=== PATIENT | female | born 1980 ===

== ENCOUNTER 2018-07-20 19:25 | Emergency (ER) | payer OTHER ==
[~2018-07-20] VITALS: Ht 167.6 cm; Wt 107.5 kg
[~2018-07-20 19:25] MED LIST: CIMETIDINE; DICYCLOMINE HCL10 MG; PERCOCET 5/3251 TAB PO; TRAMADOL HCL25 GM
[2018-07-20] MEDS ORDERED: FIORICET (19:45)
== END 2018-07-20 22:48 | disposition home or self-care (01) ==
LOC: ER 19:25
DX: J06.9 Acute upper respiratory infection, unspecified (principal)